=== PATIENT | female | born 1960 | race Caucasian/White ===

== ENCOUNTER → 2016-07-15 | Outpatient (CLI) | payer OTHER ==
--- NOTE | 2016-07-15 21:19 | DI ---
MRI LUMBAR SPINE SCAN WITHOUT IV CONTRAST, 07/15/2016 10:47 AM: Clinical History: Low back pain. Previous Exam: 03/03/2016. Technique: Sagittal and axial T2 weighted; sagittal T1 weighted and T2 STIR; and axial PD. There is a chronic compression fracture of L2 in the appearance is unchanged. There is no increased s ignal intensity in this vertebral body. The remaining vertebral bodies are of normal height. There is severe disc space narrowing at L3-4 with almost complete obliteration of the disc. Severe disc space narrowing is present at L4-5 and L5-S1. There is increased signal intensity at the respective endpla leonid at the L3-4 level and this amount of increased signal intensity is greater than on the previous s tudy suggesting there may be motion at this level. The cord terminates at L1, and the conus medullari s is normal. The disc spaces from T10-11 through T12-L1 are normal. L1-2 through L3-4 have circumfere ntially bulging but not herniated discs without canal or neural foraminal stenosis. L4-5 has a focal disc bulge just to the right of midline without canal or neural foraminal stenosis. L5-S1 has a centr al focal bulging but not herniated disc without canal or neural foraminal stenosis. There are degener ative hypertrophic changes of the apophyseal joints and ligamentum flavum at all levels but most pron ounced at the L3-4 disc space. Readin. There are bulging but not herniated discs without canal or neural foraminal stenosis from L1-2 th rough L5-S1. 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 In addition, the re spective endplates at L3-4 demonstrate more hyperintensity suggesting edema and movement at this leve l compared to the previous study from 03/03/2016. 2. The disc spaces from T10-11 through T12-L1 are normal.
== END ==
LOC: MRI 10:43
PROVIDERS: ATTEND Chiropractor
DX: M54.5 Low back pain (principal); M47.817 Spondylosis without myelopathy or radiculopathy, lumbosacral region; M51.36 Other intervertebral disc degeneration, lumbar region
CPT/HCPCS: 72148